=== PATIENT | female | born 1975 | race African-American/Black ===

== ENCOUNTER 2018-12-27 06:29 | Day surgery (SDC) | payer OTHER, SELFPAY ==
[2018-12-24 14:31] LABS: Absolute Lymphocytes (CBC) 2.1 K/uL (0.7-4.9); Absolute Monocytes 0.3 K/uL (0.1-1.3); Absolute Neutrophil 3.9 K/uL (1.8-8.0); Basophils % 1.2 % (0-1.3); Eosinophils % 2.3 % (0-4.4); Lymphocytes % 31.7 % (15.3-44.8); MPV 10.3 fL (7.6-11.3); Monocytes % 5.2 % (3.3-12.3); RBC Red Blood Cell Count 4.45 M/uL (3.86-4.86)
[2018-12-24 14:32] LABS: Urine Appearance CLOUDY; Urine Bilirubin NEGATIVE (NEG); Urine Blood 3+ (NEG); Urine Color RED; Urine Glucose NEGATIVE (NEG); Urine Protein 1+ (NEG); Urine Specific Gravity 1.015 (1.005-1.030)
[2018-12-24 14:33] LABS: Urine Microscopic Reflex ORDER UMIC
[2018-12-24 14:58] LABS: Urine Bacteria <20 /HPF (<20); Urine Culture Reflex Order NOT NEEDED; Urine RBC >50 /HPF (NONE SEEN)
--- OUTSIDE RECORDS SUMMARY | 2018-12-27 06:31 | XMS REPORT | Continuity of Care Document ---
:1975 Author Organization Interface Problems Problem Status Onset Classification Date Comments Source Date Reported LOWER BACK PAIN Active 12/03/19 [facility] [address] DDD LUMBAR SPINE Active 08/28/[address] BODY MASS INDEX Active 12/19/19 Condition 12/18/2013 Medical BETWEEN - 14 Group ADULT CHEST PAIN Active 12/03/19 Condition 12/18/2013 Medical 14 Group CHOLELITHIASIS, Active 11/01/19 Condition 12/18/2013 Medical ASYMPTOMATIC 13 Group Gallstone<sup>5< Active 11/01/19 Problem 08/25/2017 [facility] /sup> 13 migrated Group from [employer] on 01/24/15. LONG-TERM USE OF Active 10/25/19 Condition 12/18/2013 Medical OTHER 13 Group MEDICATIONS ELEVATED LIVER Active 10/25/19 Condition 12/18/2013 Medical ENZYMES 13 Group ECZEMA Active 10/25/19 Condition 12/18/2013 Medical 13 Group Eczema<sup>3</crow Active 10/25/19 Problem 08/25/2017 [facility] p> 13 migrated Group from [employer] on 01/24/15. Liver function Active 10/25/19 Problem 08/25/2017 [facility] tests 13 migrated Group abnormal<sup>7</ from [employer] sup> [employer] on 01/24/15. Long-term drug Resolved 10/25/19 Problem 08/25/2017 [facility] therapy<sup>8</s 13 migrated Group up> from [employer] on 01/24/15. EDEMA Active 10/17/19 Condition 12/18/2013 Medical 13 Group CELLULITIS Inactive 10/17/19 Condition 12/18/2013 Medical 13 Group Cellulitis<sup>1 Resolved 10/17/19 Problem 08/25/2017 [facility] , 2</sup> 13 migrated Group from [employer] on 03/13/15. Edema<sup>4</sup Active 10/17/19 Problem 08/25/2017 [facility] > 13 migrated Group from [facility] on 01/24/15. HEADACHE Active 09/14/19 Condition 12/18/2013 Medical 13 Group NEED Active 09/14/19 Condition 12/18/2013 Medical PROPHYLACTIC 13 Group VACCINATION&INOC ULATION FLU Headache<sup>6</ Active 09/14/19 Problem 08/25/2017 [facility] sup> 13 migrated Group from [facility] on 01/24/15. Hematuria Active Problem 08/25/2017 Medical Group BMI Active Problem 08/25/2017 Medical 27.0-27.9,adult Group Drug therapy Active Problem 08/25/2017 Medical Group Environmental Active Problem 08/25/2017 Medical allergies Group Lumbar pain Active Problem 08/25/2017 Medical Group Lumbar sprain Active Problem 08/25/2017 Medical Group Cough Active Problem 08/25/2017 Medical Group Medications Medication Details Route Status Patient Ordering Order Source Instructions Provider Date Sulfamethoxazole 1 tab, PO, Active 800 MG / BID, start 017 Medical Trimethoprim 160 MG the day Group Oral Tablet before your [Bactrim] scope procedure, X 3 day, # 6 tab, 0 Refill(s), [id number] Ciprofloxacin 500 500 mg=1 Active MH MG Oral Tablet tab, PO, 017 Medical [Cipro] Q12H, X 10 Group day, # 20 tab, 0 Refill(s), Pharmacy: [id number] HYDROCODONE-ACETAMI 1 po 4-6 Active NOPHEN 7.5-325 MG hrs prn 014 Medical TABS Group ORPHENADRINE 1po q12 hrs Active CITRATE ER 100 MG prn 014 Medical [id number] Group MELOXICAM 7.5 MG 1 tablet Active TABS daily 014 Medical Group FUROSEMIDE 20 MG 1 po qd No MH TABS Longer 013 Medical Active Group KLOR-CON M10 10 MEQ 1 po qd No MH CR-TABS Longer 013 Medical Active Group DIFLUCAN TAB 150MG 1 tab po No MH once and Longer 013 Medical repeat in Active Group one week LEVAQUIN TABS 500 one tab po No MH MG qd Longer 013 Medical Active Group DOXYCYCLINE HYCLATE one po bid No MH 100 MG TABS for 10 days Longer 013 Medical Active Group FIORICET 50-325-40 one to two No MH MG TABS po q 6 Longer 013 Medical hours as Active Group needed for pain Allergies, Adverse Reactions, Alerts Substance Category Reaction Severity Reaction Status Date Comments Source type Reported PENICILLIN Drug PENICILLIN allergy Medical Group penicillins Assertion Drug Active Data <sup>1</sup allergy migrated Medical > from [employer] [facility] on 03/26/15. Originally documented as PENICILLIN. Immunizations Immunization Date Given Site Status Last Updated Comments Source Results Order Name Results Value Reference Date Interpretation Comments Source Range Chemistry CERULOPLASMI 41 18 - 53 10/29/ mg/dL 2012 Medical Group Vital Signs Vital Sign Value Date Comments Source Height 172.72 cm 08/11/2017 Medical Group Weight 84.148 08/11/2017 Medical Group BMI Calculated 28.21 08/11/2017 Medical Group Systolic (mm Hg) 111 08/11/2017 Medical Group Diastolic (mm Hg) 75 08/11/2017 Medical Group Temperature Oral (F) 98.3 F 08/11/2017 Medical Group Heart Rate 80 08/11/2017 Medical Group Weight 80.909 07/24/2017 Medical Group Respitory Rate 15 07/24/2017 Medical Group Temperature Oral (F) 98.2 F 07/24/2017 Medical Group Heart Rate 72 07/24/2017 Medical Group Systolic (mm Hg) 112 07/24/2017 Medical Group Diastolic (mm Hg) 78 07/24/2017 Medical Group Weight 153 12/18/2013 Medical Group Temperature Oral (F) 98.6 F 12/18/2013 Medical Group Respitory Rate 16 12/18/2013 Medical Group Heart Rate 60 12/18/2013 Medical Group Systolic (mm Hg) 118 12/18/2013 Medical Group Diastolic (mm Hg) 76 12/18/2013 Medical Group Weight 158.4 12/02/2013 Medical Group Temperature Oral (F) 98.5 F 12/02/2013 Medical Group Respitory Rate 16 12/02/2013 Medical Group Heart Rate 80 12/02/2013 Medical Group Systolic (mm Hg) 112 12/02/2013 Medical Group Diastolic (mm Hg) 78 12/02/2013 Medical Group Weight 153.4 11/08/2012 Medical Group Heart Rate 72 11/08/2012 Medical Group Systolic (mm Hg) 110 11/08/2012 Medical Group Diastolic (mm Hg) 70 11/08/2012 Medical Group Height 68 10/25/2012 Medical Group Weight 153.8 10/25/2012 Medical Group Heart Rate 64 10/25/2012 Medical Group Systolic (mm Hg) 106 10/25/2012 Medical Group Diastolic (mm Hg) 70 10/25/2012 Medical Group Weight 154 10/25/2012 Medical Group Temperature Oral (F) 97.8 F 10/25/2012 Medical Group Respitory Rate 17 10/25/2012 Medical Group Heart Rate 60 10/25/2012 Medical Group Systolic (mm Hg) 102 10/25/2012 Medical Group Diastolic (mm Hg) 70 10/25/2012 Medical Group Weight 155.6 10/17/2012 Medical Group Temperature Oral (F) 99.9 F 10/17/2012 Medical Group Respitory Rate 17 10/17/2012 Medical Group Heart Rate 68 10/17/2012 Medical Group Systolic (mm Hg) 112 10/17/2012 Medical Group Diastolic (mm Hg) 60 10/17/2012 Medical Group Height 65 09/14/2012 Medical Group Weight 158 09/14/2012 Medical Group Temperature Oral (F) 98.6 F 09/14/2012 Medical Group Respitory Rate 17 09/14/2012 Medical Group Heart Rate 80 09/14/2012 Medical Group Systolic (mm Hg) 112 09/14/2012 Medical Group Diastolic (mm Hg) 78 09/14/2012 Medical Group Encounters Location Location Encounter Encounter Reason Attending ADM DC Status Source Details Type Number For Provider Date Date Visit [facility] Office [id number] Earl Hernandez, 12/18 12/18 [facility] Visit [facility] Outpatient [id number] KADE 09/21 [facility] [place] Outpatient [id number] KAYLIE ARCE 12/02 [facility] [place] Outpatient [id number] KADE 12/20 [facility] [place] Outpatient [id number] KADE 05/11 [facility] [place] Outpatient [id number] KADE 07/[address] [facility] [id number] Kade 07/24 07/25 [facility] [place] [facility] [id number] [facility] [place] [facility]11 [facility] [id number] Kade 08/11 08/12 [facility] Outpatient [id number] [facility] 08[facility]22 [facility] [id number] [facility] 08/22 08/22 [facility] Outpatient [id number] EMIL 01/08 [facility] [place] [id number] [facility] 01/19 [facility] [place] Outpatient [id number] KADE 04/10 [facility] [place] Out[place] [id number] KADE 04/16 [facility] [place] [id number] [facility] 12[facility]10 [facility] [place] Procedures Procedure Code Date Perfomer Comments Source
--- OUTSIDE RECORDS SUMMARY | 2018-12-27 06:31 | XMS REPORT | Continuity of Care Document ---
:1975 Author Organization [facility] Care Team Providers Name Role Phone MD Daivd, Earl Unavailable Unavailable Insurance Providers Payer name Policy type / Policy ID Covered republican ID Policy Garvin Coverage type BCBS PPO PRIMARY BCBS PPO PRIMARY BCBS PPO PRIMARY [facility] - CHOICE (PPO) Encounters Encounter Performer Location Date Office Visit Earl Hernandez MD [facility] Dec 18, 2013 Practice Allergies, Adverse Reactions, Alerts Type Substance Reaction Status Drug allergy PENICILLIN Active Problems Problem Effective Dates Problem Status HEADACHE Sep 14, 2012 Active NEED PROPHYLACTIC VACCINATION&INOCULATION FLU Sep 14, 2012 Active EDEMA Oct 17, 2012 Active CELLULITIS Oct 17, 2012 Inactive LONG-TERM (CURRENT) USE OF OTHER MEDICATIONS Oct 25, 2012 Active ELEVATED LIVER ENZYMES Oct 25, 2012 Active ECZEMA Oct 25, 2012 Active CHOLELITHIASIS, ASYMPTOMATIC Oct 31, 2012 Active CHEST PAIN Dec 02, 2013 Active BODY MASS INDEX BETWEEN 19-24 ADULT Dec 18, 2013 Active Procedures Date Description Comments Sep 14, 2012 smoking status never smoker Oct 25, 2012 smoking status never smoker Medications Medication Instructions Start Date Status LEVAQUIN TABS 500 MG one tab po qd Oct 17, 2012 Inactive DOXYCYCLINE HYCLATE 100 MG TABS one po bid for 10 days Oct 17, 2012 Inactive DIFLUCAN TAB 150MG 1 tab po once and repeat in one Oct 18, 2012 Inactive week HYDROCODONE-ACETAMINOPHEN 1 po 4-6 hrs prn Dec 02, 2013 Active 7.5-325 MG TABS FUROSEMIDE 20 MG TABS 1 po qd Oct 25, 2012 Inactive KLOR-CON M10 10 MEQ CR-TABS 1 po qd Oct 25, 2012 Inactive FIORICET 50-325-40 MG TABS one to two po q 6 hours as Sep 14, 2012 Inactive needed for pain ORPHENADRINE CITRATE ER 100 MG 1po q12 hrs prn Dec 02, 2013 Active [id number] MELOXICAM 7.5 MG TABS 1 tablet daily Dec 02, 2013 Active Vital Signs Date Description Test Result Sep 14, 2012 height E&M - 8302-2 HEIGHT 65 in Sep 14, 2012 weight E&M - 3141-9 WEIGHT 158 lb Sep 14, 2012 temperature E&M TEMPERATURE 98.6 deg f Sep 14, 2012 respiratory rate E&M - 9279-1 RESP RATE 17 /min Sep 14, 2012 pulse rate E&M - 8867-4 PULSE RATE 80 /min Sep 14, 2012 blood pressure, systolic - 8480-6 BP SYSTOLIC 112 mm Hg Sep 14, 2012 blood pressure, diastolic - 8462-4 BP DIASTOLIC 78 mm Hg Oct 17, 2012 weight E&M - 3141-9 WEIGHT 155.6 lb Oct 17, 2012 temperature E&M TEMPERATURE 99.9 deg f Oct 17, 2012 respiratory rate E&M - 9279-1 RESP RATE 17 /min Oct 17, 2012 pulse rate E&M - 8867-4 PULSE RATE 68 /min Oct 17, 2012 blood pressure, systolic - 8480-6 BP SYSTOLIC 112 mm Hg Oct 17, 2012 blood pressure, diastolic - 8462-4 BP DIASTOLIC 60 mm Hg Oct 25, 2012 weight E&M - 3141-9 WEIGHT 154 lb Oct 25, 2012 temperature E&M TEMPERATURE 97.8 deg f Oct 25, 2012 respiratory rate E&M - 9279-1 RESP RATE 17 /min Oct 25, 2012 pulse rate E&M - 8867-4 PULSE RATE 60 /min Oct 25, 2012 blood pressure, systolic - 8480-6 BP SYSTOLIC 102 mm Hg Oct 25, 2012 blood pressure, diastolic - 8462-4 BP DIASTOLIC 70 mm Hg Oct 25, 2012 height E&M - 8302-2 HEIGHT 68 in Oct 25, 2012 weight E&M - 3141-9 WEIGHT 153.8 lb Oct 25, 2012 pulse rate E&M - 8867-4 PULSE RATE 64 /min Oct 25, 2012 blood pressure, systolic - 8480-6 BP SYSTOLIC 106 mm Hg Oct 25, 2012 blood pressure, diastolic - 8462-4 BP DIASTOLIC 70 mm Hg Nov 08, 2012 weight E&M - 3141-9 WEIGHT 153.4 lb Nov 08, 2012 pulse rate E&M - 8867-4 PULSE RATE 72 /min Nov 08, 2012 blood pressure, systolic - 8480-6 BP SYSTOLIC 110 mm Hg Nov 08, 2012 blood pressure, diastolic - 8462-4 BP DIASTOLIC 70 mm Hg Dec 02, 2013 weight E&M - 3141-9 WEIGHT 158.4 lb Dec 02, 2013 temperature E&M TEMPERATURE 98.5 deg f Dec 02, 2013 respiratory rate E&M - 9279-1 RESP RATE 16 /min Dec 02, 2013 pulse rate E&M - 8867-4 PULSE RATE 80 /min Dec 02, 2013 blood pressure, systolic - 8480-6 BP SYSTOLIC 112 mm Hg Dec 02, 2013 blood pressure, diastolic - 8462-4 BP DIASTOLIC 78 mm Hg Dec 18, 2013 weight E&M - 3141-9 WEIGHT 153 lb Dec 18, 2013 temperature E&M TEMPERATURE 98.6 deg f Dec 18, 2013 respiratory rate E&M - 9279-1 RESP RATE 16 /min Dec 18, 2013 pulse rate E&M - 8867-4 PULSE RATE 60 /min Dec 18, 2013 blood pressure, systolic - 8480-6 BP SYSTOLIC 118 mm Hg Dec 18, 2013 blood pressure, diastolic - 8462-4 BP DIASTOLIC 76 mm Hg Results Date Description Test Name Value Reference Interpretation Status Oct 29, 2012 ceruloplasmin, CERULOPLASMI 41 mg/dL 18-53 Normal serum
[2018-12-27] MEDS ORDERED: SCOPOLAMINE HYDROBROMIDE PATCH TD ONE (06:59)
[2018-12-27] MEDS ORDERED: CEFAZOLIN/SWI 2gm 2 GM/20 ML SYR ONE (06:59)
[2018-12-27] MEDS ORDERED: Ringers Lactate 1,000 ML IV ONE (06:59)
[2018-12-27] MEDS ORDERED: PROPOFOL 200 MG/20 ML VIAL IV ONE (07:05)
[2018-12-27] MEDS ORDERED: ROCURONIUM 50 MG/5 ML VIAL IV ONE ×2 (07:06→08:28)
[2018-12-27] MEDS ORDERED: GLYCOPYRROLATE 0.2 MG/ML SYR ONE (07:07)
[2018-12-27] MEDS ORDERED: LIDOCAINE 2% MPF 5 ML VIAL ONE (07:08)
[2018-12-27] MEDS ORDERED: DEXAMETHASONE 10 MG/ML VIAL ONE (07:08)
[2018-12-27] MEDS ORDERED: FENTANYL CITR 250 MCG/5 ML ONE ×2 (07:09→08:28)
[2018-12-27] MEDS ORDERED: NEOSTIGMINE 1 MG/ML -10 ML VIAL ONE (07:12)
[2018-12-27] MEDS ORDERED: ONDANSETRON 4 MG/2 ML VIAL ONE ×2 (07:12→09:55)
[2018-12-27] MEDS ORDERED: NA CHLORIDE 0.9% 1,000 ML ONE ×2 (07:16→07:26)
[2018-12-27] MEDS ORDERED: MIDAZOLAM HCL 2 MG/2 ML INJ ONE (07:29)
[2018-12-27] MEDS: Ringers Lactate 1,000 ML IV ONE ×2 (09:40→09:46)
[2018-12-27] MEDS ORDERED: KETOROLAC 30 MG/ML INJ ONE (09:55)
[2018-12-27] MEDS: HYDROMORPHONE HCL 2 MG/ML inj ONE ×3 (11:26→11:41)
[2018-12-27] MEDS ORDERED: PROMETHAZINE 25 MG/ML VIAL ONE (14:33)
[2018-12-27] MEDS ORDERED: PROMETHAZINE 25 MG TABLET ONE (15:43)
== END 2018-12-27 15:35 | disposition home or self-care (01) ==
LOC: OR 06:29
PROVIDERS: ATTEND Obstetrics & Gynecology
PROC: 0UT74ZZ Resection of Bilateral Fallopian Tubes, Percutaneous Endoscopic Approach (ICD-10-PCS; 2018-12-27)
PROC: 0UT94ZZ Resection of Uterus, Percutaneous Endoscopic Approach (ICD-10-PCS; principal; 2018-12-27 07:30)
DX: D25.9 Leiomyoma of uterus, unspecified (principal); N92.0 Excessive and frequent menstruation with regular cycle; N94.6 Dysmenorrhea, unspecified; N94.12 Deep dyspareunia; N73.6 Female pelvic peritoneal adhesions (postinfective); D50.0 Iron deficiency anemia secondary to blood loss (chronic); N88.8 Other specified noninflammatory disorders of cervix uteri; N80.0 Endometriosis of uterus; N83.8 Other noninflammatory disorders of ovary, fallopian tube and broad ligament; Z88.0 Allergy status to penicillin
CPT/HCPCS: 36415; 81003; 81015; 81025; 85025; 86850; 86900; 86901; 88307; J0690; J1100; J1170; J2250; J2405; J2550; J2704; J2710; J3010; J7030